=== PATIENT | female | born 1965 | race Caucasian/White ===

== ENCOUNTER 2024-03-31 07:05 | Inpatient (IN) | payer BC ==
[2024-03-31] VITALS (18 sets, daily range): BP systolic 100–148; PULSE 114–145; RESP 22–42; TEMP 97.1–101.8; O2SAT 89–97
[~2024-03-31] VITALS: Ht 157.5 cm; Wt 64.9 kg
[2024-03-31 07:44] LABS: BASOPHILS % (AUTO) 0.1 % (0.0-2.0); HEMATOCRIT 26.9 % (36-48); HEMOGLOBIN 8.9 g/dL (12.0-16.0); LYMPHOCYTES # (AUTO) 0.4 K/uL (1.0-5.5); LYMPHOCYTES % (AUTO) 1.3 % (20.5-51.5); MEAN CORPUSCULAR HEMOGLOBIN 28 pg (27-31); MEAN CORPUSCULAR HGB CONC 33 % (32-36); MEAN CORPUSCULAR VOLUME 85 fL (79.0-98.0); MONOCYTES # (AUTO) 0.9 K/uL (0.0-1.0); MONOCYTES % (AUTO) 3.1 % (1.7-9.3); NEUTROPHILS # (AUTO) 27.8 K/uL (1.8-7.7); NEUTROPHILS % (AUTO) 95.5 % (40.0-70.0); PLATELET COUNT (AUTO) 330 K/uL (130-430); RED BLOOD CELL COUNT(AUTO) 3.18 MIL/uL (4.2-6.2); WHITE BLOOD COUNT (AUTO) 29.1 K/uL (4.8-10.8)
[2024-03-31 07:45] LABS: BLOOD GAS HCO3 24.3 mmol/L (21.0-27.0); BLOOD GAS PCO2 42.6 mmHg (35.0-45.0); BLOOD GAS PH 7.374 (7.350-7.450); BLOOD GAS PO2 113.3 mmHg (75.0-100.0)
[2024-03-31] MEDS: NS 1000 ML IV.SOLN IV ONE (07:47)
[2024-03-31 07:51] LABS: INR 1.8 (0.8-1.2); PROTHROMBIN TIME 18.4 SECS (9.5-12.5)
[2024-03-31 08:04] LABS: BILIRUBIN,URINE NEGATIVE (NEGATIVE); CLARITY/URINE CLEAR (CLEAR); COLOR,URINE YELLOW (YELLOW); GLUCOSE,URINE NEGATIVE (NEGATIVE); KETONES,URINE TRACE (NEGATIVE); LEUKOCYTE ESTERASE ,URINE TRACE (NEGATIVE); NITRITE, URINE NEGATIVE (NEGATIVE); PROTEIN URINE 2+ (NEGATIVE); UROBILINOGEN,URINE 0.2 (0.2-1.0)
[2024-03-31] MEDS ORDERED: PIPERACILLIN/TAZOBACTAM 3.375 GM/VIAL (ZOSYN) IV ONE (08:06)
[2024-03-31 08:07] LABS: BLOOD, URINE TRACE (NEGATIVE)
[2024-03-31 08:08] LABS: ALANINE AMINOTRANSFERASE 4 U/L (12-78); ALBUMIN 1.7 g/dL (3.4-4.8); ANION GAP 15 (5-15); ASPARTATE AMINOTRANSFERASE 25 U/L (10-37); BILIRUBIN,DIRECT 0.3 mg/dL (0.0-0.3); CALCIUM 7.4 mg/dL (8.4-11.0); CARBON DIOXIDE 24 mmol/L (23-29); CHLORIDE 102 mmol/L (98-107); CREATININE 0.78 mg/dL (0.55-1.30); GFR AFRICAN AMERICAN 98 mL/min (>90); GLUCOSE 155 mg/dL (74-106); POTASSIUM 3.1 mmol/L (3.5-5.1); SODIUM SERUM 141 mmol/L (136-145); TOTAL BILIRUBIN 0.5 mg/dL (0.0-1.0); TOTAL PROTEIN, SERUM 6.2 g/dL (6.4-8.3); UREA NITROGEN, BLOOD 8 mg/dL (8-21)
[2024-03-31 08:10] LABS: GFR NON AFRICAN-AMERICAN 81 mL/min (>90)
[2024-03-31] MEDS: PIPERACILLIN/TAZO 3.375 GM in D5W 50 ML IV ONE (08:13)
[2024-03-31 08:14] LABS: ALLEN'S TEST POSITIVE (P)
[2024-03-31] MEDS: ACETAMINOPHEN 650 MG SUPP.RECT RC ONE (08:17)
[2024-03-31 08:19] LABS: BACTERIA,URINE MANY /HPF (None Seen); RBC,URINE 0-3 /HPF (0-3); URINE AMORPHOUS URATE 1+ /HPF (None Seen)
[2024-03-31] MEDS: KCL 40 mEq in 100 mL (PREMIX) 100 ML IV ONE (09:04)
[2024-03-31] MEDS ORDERED: ACETAMINOPHEN 325 MG TABLET PO PRN ×2 (10:15→11:15)
[2024-03-31] MEDS ORDERED: MORPHINE 4 MG INJ. 4 MG/ML VIAL IVP PRN (10:15)
[2024-03-31] MEDS ORDERED: LORazepam 2 MG/ML VIAL IVP PRN ×2 (10:15→14:00)
[2024-03-31] MEDS ORDERED: ALBUTEROL SULFATE 0.083% 2.5 MG/3 ML VIAL.NEB INH PRN (10:15)
[2024-03-31] MEDS ORDERED: ONDANSETRON HCL 4 MG/2 ML VIAL IVP PRN (10:15)
[2024-03-31] MEDS ORDERED: [UNRECOGNIZED DRUG - CODE] PO (10:30)
[2024-03-31] MEDS ORDERED: METO-304 PO (10:30)
[2024-03-31] MEDS ORDERED: ROCI2 IV (10:30)
[2024-03-31] MEDS ORDERED: ALBU2.5V7 INH (10:30)
[2024-03-31] MEDS ORDERED: LEVO75CA5 PO (10:30)
[2024-03-31] MEDS ORDERED: ONDA-8 PO (10:30)
[2024-03-31] MEDS ORDERED: MOM PO (10:30)
[2024-03-31] MEDS ORDERED: VITD2000 PO (10:30)
[2024-03-31] MEDS ORDERED: DUL5 PO (10:30)
[2024-03-31] MEDS ORDERED: ACET-2634 PO (10:30)
[2024-03-31] MEDS ORDERED: HYDR-3919 PO (10:30)
[2024-03-31] MEDS ORDERED: DIPH-179 PO (10:30)
[2024-03-31] MEDS ORDERED: CHOL50006 PO (10:30)
[2024-03-31] MEDS ORDERED: AMIT50TA3 PO (10:30)
[2024-03-31] MEDS ORDERED: PROC-11 PO (10:30)
[2024-03-31] MEDS ORDERED: METR-154 PO (10:30)
[2024-03-31] MEDS ORDERED: ACET325C6 PO (10:30)
[2024-03-31] MEDS ORDERED: BISA10SU61 RC (10:30)
[2024-03-31] MEDS ORDERED: LORA0.5T PO (10:30)
[2024-03-31] MEDS: NACL 0.9% 1,000 ML IV SCH ×2 (11:38→20:45)
[2024-03-31] MEDS ORDERED: PIPERACILLIN/TAZO 3.375 GM in D5W 50 ML IV SCH (12:00)
[2024-03-31] MEDS: PIPERACILLIN/TAZO 3.375 GM in D5W 50 ML IV SCH (14:00)
[2024-03-31] MEDS ORDERED: LIDOCAINE 1% 10 MG/ML, 20 ML MDV ONE (14:15)
[2024-03-31] MEDS: VANCOMYCIN HCL 750 MG/NS 250 ML IV SCH (18:08)
[2024-03-31 19:55] LABS: ABG O2 SAT% ESTIMATE 91.2 % (94.0-100.0); BLOOD GAS BASE EXCESS -0.9 mmol/L (-3.0-3.0); BLOOD GAS PCO2 40.7 mmHg (35.0-45.0); BLOOD GAS PH 7.388 (7.350-7.450)
[2024-03-31] MEDS: MICAFUNGIN SODIUM 100 MG in NS 100 ML IV SCH (20:51)
[2024-03-31] MEDS: HEPARIN SODIUM,PORCINE 5,000 UNITS/ML VIAL SUBCUT SCH (20:51)
[2024-03-31] MEDS: FUROSEMIDE 40 MG/4 ML VIAL IVP ONE (20:53)
[2024-04-01] VITALS (43 sets, daily range): BP systolic 64–118; PULSE 104–142; RESP 12–46; TEMP 98.2–102.9; O2SAT 84–99
[2024-04-01 04:48] LABS: BASOPHILS % (AUTO) 0.1 % (0.0-2.0); HEMATOCRIT 28.3 % (36-48); HEMOGLOBIN 9.4 g/dL (12.0-16.0); LYMPHOCYTES # (AUTO) 0.3 K/uL (1.0-5.5); LYMPHOCYTES % (AUTO) 1.3 % (20.5-51.5); MEAN CORPUSCULAR HEMOGLOBIN 28 pg (27-31); MEAN CORPUSCULAR HGB CONC 33 % (32-36); MEAN CORPUSCULAR VOLUME 86 fL (79.0-98.0); MONOCYTES # (AUTO) 0.7 K/uL (0.0-1.0); MONOCYTES % (AUTO) 2.6 % (1.7-9.3); NEUTROPHILS # (AUTO) 26.1 K/uL (1.8-7.7); PLATELET COUNT (AUTO) 334 K/uL (130-430); WHITE BLOOD COUNT (AUTO) 27.2 K/uL (4.8-10.8)
[2024-04-01 05:09] LABS: ALBUMIN 1.6 g/dL (3.4-4.8); CALCIUM 7.2 mg/dL (8.4-11.0); CREATININE 0.66 mg/dL (0.55-1.30); POTASSIUM 3.4 mmol/L (3.5-5.1); TOTAL BILIRUBIN 0.6 mg/dL (0.0-1.0); TOTAL PROTEIN, SERUM 5.8 g/dL (6.4-8.3)
[2024-04-01] MEDS: LEVOTHYROXINE SODIUM 0.075 MG TABLET PO SCH (06:07)
[2024-04-01] MEDS: MORPHINE 2 MG/ML INJ. SYRINGE IVP PRN (07:42)
[2024-04-01] MEDS: KCL 20 mEq in 100 mL (PREMIX) 100 ML IV ONE (08:33)
[2024-04-01] MEDS: PANTOPRAZOLE SODIUM 40 MG/VIAL (PROTONIX) IVP SCH (08:34)
[2024-04-01] MEDS ORDERED: LORazepam 2 MG/ML VIAL IVP ONE (08:45)
[2024-04-01 09:30] LABS: ABG O2 SAT% ESTIMATE 89.6 % (94.0-100.0); BLOOD GAS BASE EXCESS -1.4 mmol/L (-3.0-3.0); BLOOD GAS HCO3 22.1 mmol/L (21.0-27.0); BLOOD GAS PCO2 33.6 mmHg (35.0-45.0); BLOOD GAS PH 7.435 (7.350-7.450)
[2024-04-01 09:32] LABS: ALLEN'S TEST POSITIVE (P); BLOOD GAS PO2 54.4 mmHg (75.0-100.0)
[2024-04-01] MEDS: PHENYLEPHRINE HCL 100 MG in NS 240 ML IV PRN (10:00)
[2024-04-01] MEDS: D5NS 1,000 ML IV SCH (15:24)
[2024-04-01] MEDS: FUROSEMIDE 40 MG/4 ML VIAL IVP ONE (15:27)
[2024-04-01] MEDS: IPRATROPIUM BROM 0.5 MG/2.5 ML VIAL.NEB (ATROVENT) INH PRN (17:35)
[2024-04-01] MEDS: FUROSEMIDE 40 MG/4 ML VIAL IVP SCH (20:29)
[2024-04-01] MEDS: ALTEPLASE 2 MG VIAL MC ONE (20:32)
[2024-04-01] MEDS: ACETAMINOPHEN 650 MG SUPP.RECT RC PRN (20:52)
[2024-04-01] MEDS ORDERED: FENTANYL CITRATE-0.9 % NACL/PF 100 ML IV PRN (22:45)
[2024-04-01] MEDS ORDERED: MIDAZOLAM IN NACL,ISO-OSMOT/PF 100 ML IV PRN (22:45)
[2024-04-01] MEDS: NACL 0.9% 1,000 ML IV ONE (23:26)
[2024-04-01] MEDS: VASOPRESSIN 40 UNITS in NS 38 ML IV PRN (23:38)
[2024-04-01] MEDS: VASOPRESSIN 20 UNITS/ML VIAL IV ONE (23:44)
[2024-04-01 23:51] LABS: BLOOD GAS PCO2 30.7 mmHg (35.0-45.0); BLOOD GAS PH 7.379 (7.350-7.450); BLOOD GAS PO2 106.2 mmHg (75.0-100.0)
[2024-04-01 23:52] LABS: ABG O2 SAT% ESTIMATE 97.8 % (94.0-100.0); ALLEN'S TEST Y (P); BLOOD GAS BASE EXCESS -6.1 mmol/L (-3.0-3.0); BLOOD GAS HCO3 17.7 mmol/L (21.0-27.0)
[2024-04-02] VITALS (55 sets, daily range): BP systolic 47–177; PULSE 101–142; RESP 8–45; TEMP 97.7–99.5; O2SAT 65–99
[2024-04-02] MEDS: NS 500 ML IV ONE (01:00)
[2024-04-02] MEDS: NACL 0.9% 1,000 ML IV ONE (04:47)
[2024-04-02] MEDS: HYDROCORTISONE SOD SUCC 100 MG/2 ML VIAL IVP ONE (04:47)
[2024-04-02 06:04] LABS: BASOPHILS # (AUTO) 0.2 K/uL (0.0-0.2); BASOPHILS % (AUTO) 0.7 % (0.0-2.0); HEMATOCRIT 25.3 % (36-48); HEMOGLOBIN 7.9 g/dL (12.0-16.0); LYMPHOCYTES # (AUTO) 0.7 K/uL (1.0-5.5); LYMPHOCYTES % (AUTO) 3.2 % (20.5-51.5); MEAN CORPUSCULAR HEMOGLOBIN 28 pg (27-31); MEAN CORPUSCULAR HGB CONC 31 % (32-36); MEAN CORPUSCULAR VOLUME 91 fL (79.0-98.0); MONOCYTES # (AUTO) 0.9 K/uL (0.0-1.0); NEUTROPHILS # (AUTO) 20.1 K/uL (1.8-7.7); NEUTROPHILS % (AUTO) 92.1 % (40.0-70.0); PLATELET COUNT (AUTO) 399 K/uL (130-430); RED BLOOD CELL COUNT(AUTO) 2.79 MIL/uL (4.2-6.2); RED CELL DISTRIBUTION WIDTH 23.3 % (9.0-15.0); WHITE BLOOD COUNT (AUTO) 21.9 K/uL (4.8-10.8)
[2024-04-02 06:32] LABS: ALBUMIN 1.3 g/dL (3.4-4.8); CREATININE 1.07 mg/dL (0.55-1.30); POTASSIUM 4.3 mmol/L (3.5-5.1); TOTAL BILIRUBIN 0.8 mg/dL (0.0-1.0)
[2024-04-02 06:38] LABS: CALCIUM 6.1 mg/dL (8.4-11.0)
[2024-04-02] MEDS: NOREPINEPHRINE BITARTRATE 8 MG in D5W 242 ML IV PRN (06:51)
[2024-04-02] MEDS ORDERED: ETOMIDATE 20 MG/ 10 ML VIAL (AMIDATE) ONE (07:00)
[2024-04-02] MEDS: HYDROCORTISONE SOD SUCC 100 MG/2 ML VIAL IVP SCH (08:33)
[2024-04-02] MEDS: CALCIUM GLUC 2 GM/100ML-NACL 100 ML IV ONE (11:29)
[2024-04-02] MEDS: MEROPENEM 1 GM in NS 100 ML IV SCH (14:26)
[2024-04-02] MEDS: EPINEPHrine HCL 5 MG in NS 245 ML IV PRN (15:25)
[2024-04-02] MEDS: NOREPINEPHRINE BITARTRATE 32 MG in D5W 218 ML IV PRN (18:24)
[2024-04-02] MEDS: LINEZOLID 300 ML IV SCH (21:00)
[2024-04-03] VITALS (18 sets, daily range): BP systolic 67–134; PULSE 0–121; RESP 0–38; TEMP 96–97; O2SAT 27–73
[2024-04-03] MEDS ORDERED: SODIUM BICARBONATE 8.4% JECT 50 MEQ/50 ML SYRINGE ONE
[2024-04-03] MEDS ORDERED: EPINEPHrine HCL 1 MG/ML VIAL ONE ×3 (00:05→03:01)
[2024-04-03] MEDS: VASOPRESSIN 40 UNITS in NS 38 ML IV PRN (00:27)
[2024-04-03] MEDS ORDERED: EPINEPHrine JECT 0.1 MG/ML SYR ONE (03:10)
[2024-04-03] MEDS: EPINEPHrine HCL 10 MG in NS 240 ML IV PRN (03:20)
[2024-04-03 05:07] LABS: HEMATOCRIT 26.4 % (36-48); HEMOGLOBIN 7.4 g/dL (12.0-16.0); MEAN CORPUSCULAR HEMOGLOBIN 29 pg (27-31); MEAN CORPUSCULAR HGB CONC 28 % (32-36); MEAN CORPUSCULAR VOLUME 104 fL (79.0-98.0); PLATELET COUNT (AUTO) 154 K/uL (130-430); RED BLOOD CELL COUNT(AUTO) 2.54 MIL/uL (4.2-6.2); RED CELL DISTRIBUTION WIDTH 24.8 % (9.0-15.0)
[2024-04-03 05:14] LABS: CREATININE 1.6 mg/dL (0.55-1.30); PHOSPHORUS 11.8 mg/dL (2.7-4.5)
[2024-04-03 05:20] LABS: POTASSIUM 7.8 mmol/L (3.5-5.1)
[2024-04-03 05:21] LABS: CALCIUM 6.3 mg/dL (8.4-11.0)
[2024-04-03 05:25] LABS: WHITE BLOOD COUNT (AUTO) 32.2 K/uL (4.8-10.8)
[2024-04-03 15:05] LABS: BAND % (MANUAL) 10 % (0-6); BASOPHILS % (MANUAL) 0 % (0-2); CORRECTED WHITE BLOOD COUNT 29.5 K/uL (4.5-11.0); EOSINOPHILS % (MANUAL) 0 % (0-7); LYMPHOCYTES % (MANUAL) 13 % (20-46); METAMYELOCYTES % 1 % (0-0); MONOCYTES % (MANUAL) 2 % (0-11); MYELOCYTES % 3 % (0-0); PLATELET ESTIMATE ADEQUATE (ADEQUATE)
[2024-04-03 15:06] LABS: ANISOCYTOSIS 2+
== END 2024-04-03 08:16 | DRG 871 ==
LOC: SED 07:05 → STU 10:03 → SIC 13:12
PROVIDERS: ADMIT Internal Medicine; ATTEND Internal Medicine
PROC: 30233K1 Transfusion of Nonautologous Frozen Plasma into Peripheral Vein, Percutaneous Approach (ICD-10-PCS; 2024-03-31)
PROC: 5A09457 Assistance with Respiratory Ventilation, 24-96 Consecutive Hours, Continuous Positive Airway Pressure (ICD-10-PCS; 2024-03-31)
PROC: 0F9130Z Drainage of Right Lobe Liver with Drainage Device, Percutaneous Approach (ICD-10-PCS; principal; 2024-03-31 14:33)
PROC: 5A1945Z Respiratory Ventilation, 24-96 Consecutive Hours (ICD-10-PCS; 2024-04-01)
PROC: 0BH17EZ Insertion of Endotracheal Airway into Trachea, Via Natural or Artificial Opening (ICD-10-PCS; 2024-04-01)
DX: A41.9 Sepsis, unspecified organism (principal); E43 Unspecified severe protein-calorie malnutrition; J18.9 Pneumonia, unspecified organism; J96.01 Acute respiratory failure with hypoxia; R65.21 Severe sepsis with septic shock; K75.0 Abscess of liver; I21.A1 Myocardial infarction type 2; I50.23 Acute on chronic systolic (congestive) heart failure; N17.9 Acute kidney failure, unspecified; N39.0 Urinary tract infection, site not specified; E03.9 Hypothyroidism, unspecified; Z79.899 Other long term (current) drug therapy; Z85.038 Personal history of other malignant neoplasm of large intestine; Z85.53 Personal history of malignant neoplasm of renal pelvis; Z68.26 Body mass index [BMI] 26.0-26.9, adult
CPT/HCPCS: 36415; 36600; 71045; 71250-TC; 76000; 76942; 80048; 80053; 80076; 81000; 81001; 81015; 82803; 83605; 83735; 83880; 84100; 84484; 85007; 85025; 85027; 85610; 85730; 86480; 86635; 86886; 86900; 86901; 87040; 87070; 87075; 87081; 87086; 87205; 87230; 87340; 87497; 87899; 92950; 93005; 93306; 94002; 94003; 94070; 94640; 94660; 94760; 99291; C9113; J0171; J0330; J1644; J1720; J1940; J2001; J2020; J2060; J2185; J2248; J2270; J2370; J2543; J2997; J3370; J3480; J3490; J7050; J7060; P9059